=== PATIENT | male | born 2000 | race American Indian/Alaskan Native ===

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

== ENCOUNTER 2022-10-24 19:53 | Emergency (ER) | payer OTHER ==
[~2022-10-24] VITALS: Ht 177.8 cm; Wt 127.0 kg
[2022-10-24 20:00] VITALS: BP 137/103
[2022-10-24] MEDS ORDERED: AMOCLA875 PO (20:37)
== END 2022-10-24 20:50 | disposition home or self-care (01) ==
LOC: ER 19:53
DX: S51.851A Open bite of right forearm, initial encounter (principal); W54.0XXA Bitten by dog, initial encounter; E11.9 Type 2 diabetes mellitus without complications; J45.909 Unspecified asthma, uncomplicated; Z79.899 Other long term (current) drug therapy
CPT/HCPCS: 99283